=== PATIENT | male | born 1990 | race Caucasian/White ===

== ENCOUNTER 2018-12-22 17:31 | Inpatient (IN) ==
[2018-12-22] MEDS ORDERED: NS 1,000 ML IV ONE ×2 (17:41→21:21)
[2018-12-22] MEDS ORDERED: M.V.I.-12 10 ML, FOLIC ACID 1 MG, MAGNESIUM SULFATE 1 GM, THIAMINE 100 MG in NS 1,000 ML IV ONE (17:42)
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
[2018-12-22 18:03] LABS: BASO% 4.3 % (0.0-0.8); EOS# 0.04 X1000 (0.0-0.7); EOS% 0.9 % (0.0-10.0); HEMATOCRIT 43.9 % (42.0-52.0); HEMOGLOBIN 15.2 g/dL (14.0-18.0); IMM GRAN# 0.02 X1000 (0.0-0.04); IMM GRAN% 0.4 % (0.0-0.5); LYMPH# 1.39 X1000 (1.2-3.4); LYMPH% 30.1 % (20.5-51.1); MCH 33.8 PG (27-31); MCHC 34.6 g/dL (33-37); MCV 97.6 FL (81-99); MONO# 0.52 X1000 (0.11-0.59); MONO% 11.3 % (1.7-9.3); MPV 9.2 FL (7.4-10.4); NEUT# 2.45 X1000 (1.4-6.5); PLT 202 X1000 (130-400); RDW 13.7 % (11.5-14.5); WBC 4.62 X1000 (4.8-10.8)
[2018-12-22 18:06] LABS: ALLEN TEST YES; BE 1.2 mmoll (-3.0-3.0); BLOOD TYPE ARTERIAL; HCO3-(ACT) 25.7 mmoll (20.0-26.0); METHB 1.5 % (0.0-1.5); O2HB 92.8 % (95.0-99.0); PCO2(98.6) 41 mmHg (35-45); PO2(98.6) 77 mmHg (60-100); SAMPLE BLOOD; SAO2 95.5 % (95.0-100.0); THB 15.3 g/dL (11.5-17.4); pH(98.6) 7.41 (7.35-7.45)
[2018-12-22 18:07] LABS: MODALITY ROOM AIR
[2018-12-22 18:12] LABS: INR 0.98; PROTIME 13.8 Seconds (11.0-16.0)
[2018-12-22 18:19] LABS: AGAP 23; ALB/GLOB RATIO 1.4; ALBUMIN 4.4 g/dL (3.5-5.0); ALKALINE PHOSPHATASE 131 U/L (32-122); BUN 6 mg/dL (8-22); CALCIUM 8.7 mg/dL (8.8-10.2); CHLORIDE 96 mmol/L (98-107); CK PROFILE 62 U/L (24-204); COSMO 284; CREATININE 0.8 mg/dL (0.7-1.2); ESTIMATED GFR > 60; GLUCOSE 126 mg/dL (70-104); GOT 424 U/L (10-34); GPT 182 U/L (10-44); POTASSIUM 3.4 mmol/L (3.5-5.1); SODIUM 143 mmol/L (136-145); TCO2 24 mmol/L (25-35); TOTAL BILIRUBIN 0.79 mg/dL (0.20-1.00); TOTAL PROTEIN 7.6 g/dL (6.3-8.3)
[2018-12-22 18:46] LABS: UR AMPHETAMINES QUAL NONE DETECTED (NONE DETECT); UR BARBITUATES QUAL NONE DETECTED (NONE DETECT); UR BENZODIAZEPIN QUAL NONE DETECTED (NONE DETECT); UR CANNABINOIDS QUAL NONE DETECTED (NONE DETECT); UR COCAINE QUAL NONE DETECTED (NONE DETECT); UR METHADONE QUAL NONE DETECTED (NONE DETECT); UR OPIATES QUAL NONE DETECTED (NONE DETECT); UR OXYCODONE QUAL NONE DETECTED (NONE DETECT); UR PCP QUAL NONE DETECTED (NONE DETECT)
[2018-12-22] MEDS ORDERED: ATIVAN IM ONE (21:36)
[2018-12-22] MEDS ORDERED: ATIVAN IV ONE ×2 (21:45→23:21)
[2018-12-22] MEDS ORDERED: ATIVAN ONE (21:48)
[2018-12-23] MEDS ORDERED: LOPRESSOR IV ONE (00:11)
[2018-12-23] MEDS ORDERED: NICODERM PATCH TD PRN (00:45)
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
[2018-12-23] MEDS ORDERED: TYLENOL PO PRN (02:41)
[2018-12-23] MEDS ORDERED: ZOFRAN IV PRN (02:41)
[2018-12-23] MEDS: NS 1,000 ML IV SCH ×4 (03:22→17:29)
[2018-12-23] MEDS: TRANXENE PO SCH ×2 (03:22→10:27)
[2018-12-23] MEDS ORDERED: SUBOXONE 8 MG/2 MG SL SCH (09:00)
[2018-12-23] MEDS: PRILOSEC PO SCH (10:01)
[2018-12-23] MEDS: ATIVAN IV PRN ×4 (10:03→23:40)
--- NOTE | 2018-12-23 16:58 | PROGRESS NOTE ---
DATE: 12/23/2018 SUBJECTIVE: The patient is resting in bed. Not in any obvious distress. OBJECTIVE: Vital Signs: Temperature 98.4 degrees, pulse 118, respiratory rate 16, blood pressure 164/88, oxygen saturation 99%. HEENT: Atraumatic, normocephalic. Cardiovascular: S1, S2. Respiratory system: Has evidence of good air entry bilaterally. Abdomen: Soft, nontender. No masses felt. Extremities: No evidence of edema. Central Nervous System: No obvious focal deficit noted. LABORATORY DATA: None. ASSESSMENT AND PLAN: 1. Alcoholic intoxication. Maintain the patient on delirium tremens prophylaxis in anticipation of withdrawal. Also, place him on thiamine, folic acid, as well as multivitamin. Check magnesium and phosphorus level, and replace those if needed. 2. Hypokalemia. Replace and then check magnesium level. 3. Abnormal liver function tests, most likely secondary to the effects of alcohol. Follow up on liver function tests and check hepatitis panel. Also check abdominal ultrasound. 4. Deep vein thrombosis prophylaxis. Sequential compression devices. cc: Jason Wilkinson MD
[2018-12-23] MEDS: LIBRIUM PO SCH ×2 (17:28→22:30)
[2018-12-23] MEDS: POTASSIUM CHLORIDE 20 MEQ/SWI 20 MEQ/100 ML IVPB IV SCH (17:28)
[2018-12-23 18:06] LABS: MAGNESIUM 1.3 mg/dL (1.5-2.7)
[2018-12-24] MEDS: ATIVAN IV PRN ×2 (01:39→07:59)
[2018-12-24] MEDS: POTASSIUM CHLORIDE 20 MEQ/SWI 20 MEQ/100 ML IVPB IV SCH (01:45)
[2018-12-24 04:34] VITALS: BP 151/93
[2018-12-24] MEDS: LIBRIUM PO SCH ×2 (05:37→10:10)
[2018-12-24] MEDS: PRILOSEC PO SCH (07:59)
[2018-12-24 08:12] LABS: BASO# 0.04 X1000 (0.0-0.2); EOS# 0.08 X1000 (0.0-0.7); EOS% 1.9 % (0.0-10.0); HEMATOCRIT 35.4 % (42.0-52.0); HEMOGLOBIN 11.8 g/dL (14.0-18.0); LYMPH# 1.31 X1000 (1.2-3.4); LYMPH% 31.6 % (20.5-51.1); MCH 34.1 PG (27-31); MCHC 33.3 g/dL (33-37); MCV 102.3 FL (81-99); MONO# 0.61 X1000 (0.11-0.59); MONO% 14.7 % (1.7-9.3); MPV 9.6 FL (7.4-10.4); NEUT# 2.11 X1000 (1.4-6.5); NEUT% 50.8 % (42.2-75.2); PLT 109 X1000 (130-400); RBC 3.46 XMIL (4.7-6.1); RDW 13.5 % (11.5-14.5); WBC 4.15 X1000 (4.8-10.8)
[2018-12-24 08:33] LABS: MAGNESIUM 1.5 mg/dL (1.5-2.7); PHOSPHORUS 2.2 mg/dL (2.7-4.5)
[2018-12-24 08:43] LABS: AGAP 11; ALB/GLOB RATIO 1.4; ALBUMIN 3.7 g/dL (3.5-5.0); ALKALINE PHOSPHATASE 91 U/L (32-122); BUN 4 mg/dL (8-22); CALCIUM 8.7 mg/dL (8.8-10.2); CHLORIDE 98 mmol/L (98-107); COSMO 270; CREATININE 0.5 mg/dL (0.7-1.2); ESTIMATED GFR > 60; GLUCOSE 87 mg/dL (70-104); GOT 118 U/L (10-34); GPT 80 U/L (10-44); SODIUM 137 mmol/L (136-145); TCO2 28 mmol/L (25-35); TOTAL BILIRUBIN 1.95 mg/dL (0.20-1.00); TOTAL PROTEIN 6.3 g/dL (6.3-8.3)
[2018-12-24] MEDS: NS 1,000 ML IV SCH (10:10)
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
[2018-12-25 11:07] LABS: HEPATITIS PROFILE ACUTE SEE COMMENTS
== END 2018-12-24 14:47 | disposition home or self-care (01) | DRG 897 ==
LOC: ED 17:31 → SUATTDRO 12-23 02:02 → EDIPHOLD 12-23 02:02 → 3N 12-23 13:13
PROVIDERS: ATTEND Internal Medicine
CPT/HCPCS: 80053; 80074; 80101; 80301; 80307; 80320; 80324; 80345; 80346; 80353; 80358; 80361; 80365; 82055; 82550; 82805; 83605; 83735; 83992; 84100; 84443; 85025; 85610; 85730; 93005; A9270; G0431; G0434; G0479; G0480; G6040; J2060; J2405; J3411; J3475; J3480; J7030